=== PATIENT | female | born 2000 ===

== ENCOUNTER → 2018-07-20 | Outpatient (REF) ==
--- NOTE | 2018-07-21 09:14 | RADIOLOGY IMAGING REPORT ---
FACILITY: [facility] PATIENT NAME: Andrey Wetzel : 2000 MR: [id number] V: [id number] EXAM DATE: ORDERING PHYSICIAN: LAURO JORDAN TECHNOLOGIST: Location: [facility] [place] Patient: Andrey Wetzel : 2000 Visit/Account:[id number] Date of Sevice: 07/21/2018 SKULL < 4 VIEWS CERVICAL SPINE 1 VIEW INDICATION: Postmortem evaluation. COMPARISON: None available. FINDINGS: AP and lateral views of the skull. AP view of the cervical spine. Odontoid fracture with approximately 7 mm of displacement. No definite additional fractures. IMPRESSION: Odontoid fracture with approximately 7 mm of displacement. Report Dictated By: Vivek Espinosa MD at 07/21/2018 8:50 AM Report E-Signed By: Vivek Espinosa MD at 07/21/2018 9:10 AM WSN:[email or web address]
--- NOTE | 2018-07-21 09:15 | RADIOLOGY IMAGING REPORT ---
FACILITY: [facility] [place] PATIENT NAME: Andrey Wetzel : 2000 MR: [id number] V: [id number] EXAM DATE: ORDERING PHYSICIAN: LAURO JORDAN TECHNOLOGIST: Location: [facility] Patient: Andrey Wetzel : 2000 Visit/Account:[id number] Date of Sevice: 07/21/2018 SKULL < 4 VIEWS CERVICAL SPINE 1 VIEW INDICATION: Postmortem evaluation. COMPARISON: None available. FINDINGS: AP and lateral views of the skull. AP view of the cervical spine. Odontoid fracture with approximately 7 mm of displacement. No definite additional fractures. IMPRESSION: Odontoid fracture with approximately 7 mm of displacement. Report Dictated By: Vivek Espinosa MD at 07/21/2018 8:50 AM Report E-Signed By: Vivek Espinosa MD at 07/21/2018 9:10 AM WSN:[email or web address]
== END ==
LOC: RAD 06:17
PROVIDERS: ATTEND Nurse Practitioner
DX: Z04.89 Encounter for examination and observation for other specified reasons (principal)
CPT/HCPCS: 70250; 72020